=== PATIENT | male | born 1995 | race Caucasian/White ===

== ENCOUNTER → 2018-12-15 | Outpatient (CLI) | payer BC ==
--- NOTE | 2018-12-15 10:14 | Diagnostic Imaging Report ---
INDICATION: Leupp a pop when squatting down. Injury approximately 1 month ago. Pain. EXAMINATION: Right knee MRI without contrast on 12/15/2018. COMPARISON: None. FINDINGS: The ACL, PCL, MCL, and lateral collateral ligamentous complex are all intact. The extensor mechanism is unremarkable. The lateral and medial menisci are intact. The cartilage throughout the medial and lateral joint spaces appears unremarkable. The patellofemoral cartilage is also preserved. There is a small amount of fluid in the infrapatellar and post-patellar spaces. The soft tissues surrounding the knee are unremarkable. IMPRESSION: 1. Menisci and ligaments are intact. 2. Small amount of joint fluid which could be physiologic. No significant joint effusion is appreciated. 3. The osseous structures are unremarkable. Dictated by: Dictated on workstation # [id number]
== END ==
LOC: RAD 08:52
PROVIDERS: ATTEND Nurse Practitioner
DX: S83.271A Complex tear of lateral meniscus, current injury, right knee, initial encounter (principal)
CPT/HCPCS: 73721